=== PATIENT | female | born 1980 | race Caucasian/White ===

== ENCOUNTER 2025-04-07 14:02 | Emergency (ER) | payer OTHER, SELFPAY ==
--- NOTE | ~2025-04-07 | XR_ITS ---
XR foot RT min 3V 04/07/2025 14:20 INDICATION: Right foot pain PROCEDURE: 4 views right foot COMPARISON: No prior studies for comparison. FINDINGS: Fracture, dislocation or subluxation is not identified. The soft tissues appear within normal limits. No foreign bodies are identified. IMPRESSION: 1: NO ACUTE BONE OR JOINT ABNORMALITY IDENTIFIED. Reviewed, dictated and finalized at location O.
--- OUTSIDE RECORDS SUMMARY | 2025-04-07 14:05 | XMS_ITS | Clinical Summary ---
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 Phone Unavailable Primary Care Provider Unavailabl e Social History Tobacco Use Types Packs/Day Years Used Date Smoking Tobacco: Never Assessed Comments Unknown Sex and Gender Information Value Date Recorded Sex Assigned at Not on file Legal Sex Female 11:47 AM CDT Gender Identity Not on file Sexual Orientation Not on file Plan of Treatment Health Maintenance Due Date Last Done Comments Hepatitis C Virus (HCV) Screening 1980 TdaP Immunization 1980 Hepatitis B Immunization (1 of 3 - 19+ 3-dose series) 1999 Pap Smear 2001 Human Papillomavirus (HPV) Immunization (1 - 3-dose SCDM series) 2007 Cervical Cancer Screening (CCS) 2010 HPV/Cotest 2010 SARS-COV-2 Immunization ( - 2023- season) 2024 Influenza Immunization (#1) 2025 Respiratory Syncytial Virus (RSV) Immunization (Adult) (1 - 1-dose 75+ series) 2055 Meningococcal Immunization (ACWY) Aged Out No longer eligible based on patient's age to complete this topic Pneumococcal Immunization Combined Aged Out No longer eligible based on patient's age to complete this topic Rotavirus Immunization Aged Out No lo nger eligible based on patient's age to complete this topic Insurance [employer] on file
--- OUTSIDE RECORDS SUMMARY | 2025-04-07 14:05 | XMS_ITS | Clinical Summary ---
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 8 Active levonorgestrel (MIRENA, 52 MG,) 20 MCG/24HR IUD Mirena 20 mcg/24 hours (6 yrs) 52 mg intrauterine device Take 1 device by intrauterine route. Active terbinafine (LAMISIL) 250 MG tabletIndicatio ns:Onychomycosi s of toenail Take 1 tablet (250 mg total) by mouth daily. 42 tablet 3 Active Additional Information Patient not taking.Reported on 08/14/2024 cetirizine (ZYRTEC) 10 MG tablet Take 1 tablet (10 mg total) by mouth daily. Active fluticasone propionate (FLONASE) 50 MCG/ACT nasal spray Active fluconazole (DIFLUCAN) 150 MG tablet 4 Active Active Problems Problem Noted Date Diagnosed Date Tinea versicolor 07/06/2023 Onychomycosis of toenail 07/06/2023 Former tobacco use 07/06/2023 Overweight (BMI 25.0-29.9) 02/23/2023 Chronic right shoulder pain 02/17/2021 Tendonitis of shoulder 02/24/2018 History of iron deficiency anemia 09/21/2017 Allergic rhinitis 08/31/2017 Resolved Problems Problem Noted Date Diagnosed Date Resolved Date Eczema 08/31/2017 07/06/2023 Immunizations Immunization Administration Dates Next Due Influenza Adult (Generic) 08/11/2021,07/11/2020 MODERNA COVID-19 (12+) MRNA, LNP-S, PF, 100 MCG/ 0.5 ML DOSE 10/04/2020 MODERNA COVID-19 ([employer]EL [employer]ICER LORA [employer]), MRNA, LNP-S, PF, 50 MCG/ 0.25 ML DOSE 08/11/2021 Tdap (Adacel) 01/28/2021 Family History Medical History Relation Comments Cancer Father Hypertension Father Breast Cancer Maternal Aunt None Mother Relation Status Comments Father Alive Maternal Aunt Alive Mother Alive Social History Tobacco Use Types Packs/Day Years Used Date Smoking Tobacco: Former Cigarettes 0.3 15 0 08/15/2002 - 08/15/2017 Smokeless Tobacco: Never Tobacco Cessation:Counseling Given: Not Answered Alcohol Use Standard Drinks/Week Comments Yes 3.3 (1 standard drink = 0.6 oz p ure alcohol) socially PHQ-2 Answer Date Recorded Patient Health Questionnaire-2 Score 0 08/14/2024 Comments No Sex and Gender Information Value Date Recorded Sex Assigned at Female 09/28/2024 1:27 PM SPECIAL INVESTIGATOR Legal Sex Female 8:01 PM CDT Gender Identity Not on file Sexual Orientation Not on file Last Filed Vital Signs Vital Sign Reading Time Taken Comments Blood Pressure 114/74 08/14/2024 9:59 AM SPECIAL INVESTIGATOR Pulse 80 08/14/2024 9:59 AM SPECIAL INVESTIGATOR Temperature 36.9 C (98.4 F) 08/14/2024 9:59 AM SPECIAL INVESTIGATOR Respiratory Rate 18 08/14/2024 9:59 AM SPECIAL INVESTIGATOR Oxygen Saturation 98% 08/14/2024 9:59 AM SPECIAL INVESTIGATOR Inhaled Oxygen Concentration - - Weight 71.6 kg (157 lb 12.8 oz) 08/14/2024 9:59 AM SPECIAL INVESTIGATOR Height 160 cm (5' 3) 08/14/2024 9:59 AM SPECIAL INVESTIGATOR Body Mass Index 27.95 08/14/2024 9:59 AM SPECIAL INVESTIGATOR Plan of Treatment Health Maintenance Due Date Last Done Comments Hepatitis B Vaccines (1 of 3 - 19+ 3-dose series) 1999 HPV Vaccines (1 - 3-dose SCDM series) 2007 Annual Physical 08/12/2023 08/12/2022 COVID-19 Vaccine ( season) 2024 08/11/2021, 11/01/2020, 10/04/2020 PHQ-2 (Physician [place]) 08/15/2024 08/14/2024 Cervical Cancer Screening Pap Smear (Age 30 to 64) Every 3 Years 08/12/2025 08/12/2022 Mammogram Screening 07/20/2026 07/20/2024, 06/19/2024, 03/09/2023, Additional history exists Cervical Cancer Screening Pap with HPV Testing (Age 30 to 64) Every 5 Years 08/12/2027 08/12/2022, 01/23/2019, 08/27/2015, Additional history exists Cervical Cancer Screening with HPV 08/12/2027 DTaP, Tdap and Td Vaccines (2 - Td or Tdap) 01/28/2031 01/28/2021 Hepatitis C 02/23/2053 Postponed from 1998 (Patient Refused) Meningococcal B Vaccine Aged Out No l onger eligible based on patient's age to complete this topic Meningococcal Vaccine Aged Out No ector artem eligible based on patient's age to complete this topic Pneumococcal Vaccine: Pediatrics (0 to 5 Years) and At-Risk Patients (6 to 49 Years) Aged Out No longer eligible based on patient's age to complete this topic RSV Immunizations Under 20 Months Aged Out No longer eligible based on patient's age to complete this topic Procedures Procedure Name Priority Date/Time Associated Diagnosis Comments MG DIAG W TREY LT DIGI Routine 07/20/2024 9:23 AM SPECIAL INVESTIGATOR Abnormal mammogram HUMAN PAPILLOMAVIRUS, HIGH-RISK TYPES Routine 08/12/2022 12:00 PM SPECIAL INVESTIGATOR CYTOPATH CERV/VAG THIN LAYER Routine 08/12/2022 8:22 AM SPECIAL INVESTIGATOR from Last 3 Months or Most Recently Relevant to Health Maintenance Results * MG DIAG W TREY LT DIGI (07/20/2024 9:23 AM SPECIAL INVESTIGATOR) Anatomical Region Laterality Modality Breast Left Mammography, Rad iographic Imaging 07/20/2024 8:53 AM SPECIAL INVESTIGATOR Impressions 07/20/2024 8:55 AM SPECIAL INVESTIGATOR ===== IMPRESSION: ===== 1. No mammographic evidence of malignancy. Assessment: ACR BI-RADS 1 - NEGATIVE Recommendation: 1:Routine Screening Bilateral Comments: Ordered By: AMANDA RAHMAN Interpreted By: Delroy Ramirez, 07/20/2024 8:53 AM Narrative 07/20/2024 8:55 AM SPECIAL INVESTIGATOR [facility] [address] [place] [address] EXAMINATION: Digital left diagnostic mammogram with 3-D tomography EXAM DATE/TIME: 07/20/2024 8:26 AM REASON FOR EXAM: abnormal mammogram COMPARISON: 06/19/2024. 03/09/2023 TECHNIQUE: Digital diagnostic mammography of the left breast was performed in addition to 3-D Tomosynthesis technique. This study was read with the assistance of a computer-aided detection system. TISSUE DENSITY: There are scattered areas of fibroglandular density. Findings: Prior asymmetric tissue in the upper outer quadrant of the left breast is due to parenchymal overlap. No gross underlying lesion. No malignant microcalcifications. Amanda Rahman [facility] Final Result * HUMAN PAPILLOMAVIRUS, HIGH-RISK TYPES (08/12/2022 12:00 PM SPECIAL INVESTIGATOR) SPEC DESCRIPTION CERVICAL/END OCERVICAL 08/17/2022 9:49 AM SPECIAL INVESTIGATOR [facility] HPV DNA HIGH RISK NEGATIVE NEGATIVE 08/18/2022 2:48 PM SPECIAL INVESTIGATOR [facility] Comment:SEE CYTOLOGY REPORT 08/12/2022 12:0 0 PM SPECIAL INVESTIGATOR [place] PATHOLOGY/CYTOLOGY ORDERABLE S Final Result [facility] [address] [place] [address], * Cytopath Cerv/Vag Thin Layer (08/12/2022 8:22 AM SPECIAL INVESTIGATOR) THIN PREP PAP [facility] [address] [place] [address] Department of Pathology Pathology Report CERVICAL/VAGINAL PAP SMEAR REPORT Name: JOSSELINE BRUCE Age: 1 1980 (Age: 41) Location: [facility] Sex: F Collected Date: 08/12/2022 [facility] #: [id number] Date Received: 08/17/2022 Date Reported: 08/19/2022 Provider: [place]LLY [place] INTERPRETATION CERVICAL/ENDOCERVI STEFANO: SATISFACTORY FOR EVALUATION. ENDOCERVICAL/TRANS FORMATION ZONE COMPONENT PRESENT. NEGATIVE FOR INTRAEPITHELIAL LESION OR MALIGNANCY. NEGATIVE FOR HIGH RISK HPV. The FDA approved Aptima HPV assay is an in vitro nucleic acid amplification test for the qualitative detection of E6/E7 viral messenger RNA (mRNA) from 14 high-risk types of human papillomavirus (HPV) in cervical specimens. The high-risk HPV types detected by the assay include: 16,18,31,33,35,39, 45,51,52,56,58,59, 66, and 68. Electronically Signed Out By DERIC Goodwin (ASCP) CLINICAL HISTORY Z12.4 SCREENING PAP TEST ThinPrep Pap Test with HR HPV testing in patient > 30 years requested. Date of Last Menstrual Period: UNKNOWN Menstrual Status: Regular Contraceptive History: IUD SPECIMEN SUBMITTED CERVICAL/ENDOCERVI STEFANO Specimen Received:1 Thin Prep Vial, Image Assisted Pap (SMD) Please note: The Pap smear is not a diagnostic test. It is a screening test. Negative results on combined screening (Pap test and HPV-DNA) have a high negative predictive value (99.1-100 percent) for cervical cancer. The pap test is not effective in detecting cervical adenocarcinoma. [facility] 08/12/2022 8:22 AM SPECIAL INVESTIGATOR 08/17/2022 8:22 AM SPECIAL INVESTIGATOR Comment:CERVICAL/ENDOCERVICA L [place] PATHOLOGY/CYTOLOGY ORDERABLE S Final Result [facility] [address] [place] [address], from Last 3 Months or Most Recently Relevant to Health Maintenance Insurance Care Teams Labor Operator Relationship Specialty [place] [address] [facility] [address] [place] [address] PCP - General Nurse Practitioner Family 06/07/23
[2025-04-07 14:07] VITALS: BP 81/65; PULSE 77; RESP 18; TEMP 36.2; O2SAT 100
--- NOTE | 2025-04-07 14:07 | ED_ITS ---
HPI - Extremity Injury (Lower) General Chief Complaint: Extremity Injury, Lower Stated Complaint: RT Foot Pain Patient presents to the [facility] with complaints of pain to the bottom of right foot that began about 5 weeks ago after patient stepped on a rock. patient noted occasionally did take ibuprofen and applied ice to the area with minimal relief of symptoms. Patient thought that the area is getting more achy and after some much time this should be better. Patient denies any numbness or tingling in toes but does have aching that goes up through her big toe through middle toes. denies redness, bruising, swelling to the area Related Data Allergies Allergy/AdvReac Type Severity Reaction Status Date / Time Penicillins Allergy Mild RASH Verified 04/07/25 14:04 Review of Systems Constitutional: Constitutional: Reports as per HPI, Denies chills, Denies fatigue, Denies fever(s) and Denies weakness Eyes: Eyes: Reports no additional eye complaints Cardiovascular: Cardiovascular: Reports no additional cardiovascular complaints Respiratory: Respiratory: Reports no additional respiratory complaints Gastrointestinal: Gastrointestinal: Reports no additional gastrointestinal complaints Genitourinary: Genitourinary: Reports no additional female genitourinary complaints Musculoskeletal: Musculoskeletal: Reports as per HPI, Reports arthralgias, Denies joint swelling and Denies muscle cramps Integumentary/Breasts: Skin/Breast: Reports as per HPI, Denies pruritus and Denies rash Neurologic: Reports as per HPI, Denies focal weakness, Denies numbness and Denies weakness Psychiatric: Psychiatric: Reports no additional psychiatric complaints Endocrine: Endocrine: Reports no additional endocrine complaints Hematologic/Lymphatic: Hematologic/Lymphatic: Reports no additional hematologic/lymphatic complaints Allergic/Immunologic: Allergic/Immunologic: Reports no additional allergic/immunologic complaints [facility] Past Medical History Medical History (Updated 04/07/25 @ 14:36 by AMAIRANI SoniC) Sinusitis Anemia Screening mammogram, encounter for Surgical History Surgical History (Updated 12/10/24 @ 15:48 by YOSI Arreaga) H/O sinus surgery (11/12/24) Social History Social History (Updated 12/10/24 @ 15:36 by YOSI Arreaga) Smoking status: Never smoker Do You Feel Safe in your Home?: Yes Lack of Transportation: No Lack of Food: Never True Current Housing: I Have Housing Concerned About Future Housing: No Difficulty Paying Gas/Electric Bills: No Difficulty Paying for Meds: No Currently Unemployed: No Education: Bachelor's Degree Difficulty w/ Childcare or Family Care: No Exam Const: General: healthy appearing and no acute distress Nutritional Appearance: well nourished Orientation/consciousness: patient oriented x3 Limitations: no limitations Resp: Effort & Inspection: normal respiratory effort Cardio: Rate: regular rate Skin: General skin exam: normal color Rashes: no rashes Wounds: no wounds Neuro: General: patient oriented x3 and moves all extremities Speech: normal speech Gait exam (Neuro): Normal gait present Extrem: Right lower extremity: foot Details: normal capillary refill, normal to inspection, toes with normal ROM, no edema, vascular exam Details: dorsalis pedis pulse present, posterior tibial pulse present and normal capillary refill, tendon exam Details: active flexion normal and active extension normal and motor-sensory exam Details: two point discrimination normal, light-touch normal and pin-prick normal; normal to inspection, no tenderness, ROM of toes normal, no unusual warmth, no abrasion, no laceration, no ecchymosis, no crepitus, no foreign bodies and no puncture wound Psych: Mental Status: mental status grossly normal Affect: normal affect Attitude: cooperative Course Course Level of Care: Express Care Visit Vital Signs Vital signs: Vital Signs Temperature 97.1 F L 04/07/25 14:07 Pulse Rate 77 04/07/25 14:07 Respiratory Rate 18 04/07/25 14:07 Blood Pressure 81/65 L 04/07/25 14:07 Pulse Oximetry 100 04/07/25 14:07 Oxygen Delivery Room Air 04/07/25 14:07 Temperature 97.1 F L 04/07/25 14:07 Pulse Rate 77 04/07/25 14:07 Respiratory Rate 18 04/07/25 14:07 Blood Pressure 81/65 L 04/07/25 14:07 Pulse Oximetry 100 04/07/25 14:07 Oxygen Delivery Room Air 04/07/25 14:07 MDM - Extremity Injury (Lower) MDM Narrative Medical decision making narrative: x-rays ordered. No fracture noted on my reading. Waiting for final radiologist reading The patient was evaluated by myself in the express care. History is obtained from patient who is an independent historian and physical exam was performed. Available medical records were reviewed at this time. Exam findings show no acute concerns or changes; patient is non-toxic appearing and is in no distress. Patient is appropriate for outpatient treatment and follow-up. I have evaluated and discussed social determinants of health with the patient that could potentially impact subsequent diagnosis and treatment plans. Differential diagnosis and treatment plan were discussed with the patient. Patient agrees with discussion and after shared medical decision making agrees with plan of care. All questions were answered to the patient's satisfaction. Differential Diagnosis Differential diagnosis: Likely ankle sprain and strain, puncture wound of foot, fracture of toe and ankle fracture Medical Records Attestation: I reviewed the patient's medical records. Imaging Data Attestation: I personally reviewed and interpreted this imaging study as follows: My impression: no fracture or abnormality no Radiologist's impression: MPRESSION: 1: NO ACUTE BONE OR JOINT ABNORMALITY IDENTIFIED. Reviewed, dictated and finalized at location O. Discharge Plan Discharge Clinical Impression: Foot pain, right Patient Disposition: Home Condition: Stable Instructions: Antibiotic Form, Metatarsalgia (DC) Additional Instructions: Xray showed no fracture. Minimize activities that aggravate the condition The RICE protocol. Follow the RICE protocol as soon as possible after your injury: Rest your foot by not walking on it. Medication: Nonsteroidal anti-inflammatory drugs (NSAIDs) such as ibuprofen and naproxen can help control pain and swelling. Because they improve function by both reducing swelling and controlling pain, they are a better option for mild sprains than narcotic pain medicines. Please schedule a follow-up visit with your personal physician for further evaluation and treatment within 1week OR If your symptoms persist, change or worsen significantly before you can contact your personal physician then please, without delay, go to the emergency department for further evaluation. Patient Language: Romanian Prescriptions: New methylprednisolone [Medrol (Mike)] 4 mg tablets,dose pack See Rx Instructions .ROUTE .COMPLEX Qty: 21 0RF Rx Instructions: orally per package directions Follow-up/Referrals: Lacey,Tomasa J., OPTICAL DESIGN ENGINEER [Primary Care Provider, Family Practice] Time of Disposition: 14:37
== END 2025-04-07 14:39 | disposition home or self-care (01) ==
PROVIDERS: Emergency Provider Nurse Practitioner Family; PCP Nurse Practitioner Family
DX: M79.671 Pain in right foot (principal)
CPT/HCPCS: 73630; 99213; G0463

== ENCOUNTER 2025-06-24 16:25 | Outpatient (CLI) | payer OTHER, SELFPAY ==
--- OUTSIDE RECORDS SUMMARY | 2025-06-24 16:29 | XMS_ITS | Clinical Summary ---
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
[2025-06-24 17:56] LABS: Thyroid Stimulating Hormone 2.760 uIU/mL (0.465-4.680)
[2025-06-25 10:09] LABS: FSH 10.9 mIU/mL (.)
[2025-06-28 18:08] LABS: Estradiol, Sensitive 64.7 pg/mL (.)
== END 2025-06-24 16:26 | disposition home or self-care (01) ==
PROVIDERS: PCP Nurse Practitioner Family; Visit Provider Student in an Organized Health Care Education/Training Program
DX: N95.1 Menopausal and female climacteric states (principal)
CPT/HCPCS: 36415; 82670; 83001; 84443